=== PATIENT | female | born 1980 | race Caucasian/White ===

== ENCOUNTER 2016-08-18 13:57 | Emergency (ER) | payer SELFPAY ==
--- NOTE | 2016-08-18 14:34 | RAD ---
History: Flulike symptoms with cough. Comparison: None. Technique: 2 views Findings: The soft tissue and bony structures are unremarkable. The heart size is appropriate. No infiltrate, effusion or pneumothorax is observed. The hilar and mediastinal structures are normal. Impression: 1. A negative 2 view chest
== END 2016-08-18 14:53 | disposition home or self-care (01) ==
LOC: ED 13:57
DX: J06.9 Acute upper respiratory infection, unspecified (principal); F17.210 Nicotine dependence, cigarettes, uncomplicated